=== PATIENT | male | born 1980 | race Hispanic/Latino ===

== ENCOUNTER 2020-07-11 14:39 | Emergency (ER) | payer MEDICARE ==
[2020-07-11] MEDS ORDERED: METHYLPREDNISOLONE SOD SUCC 125MG/2ML VIAL ONE (15:01)
[2020-07-11] MEDS ORDERED: IPRATROPIUM/ALBUTEROL SULFATE 3 ML SOLUTION IH ONE (15:09)
== END 2020-07-11 16:24 | disposition home or self-care (01) ==
LOC: EDH 14:39
DX: J45.31 Mild persistent asthma with (acute) exacerbation (principal); Z20.828 Contact with and (suspected) exposure to other viral communicable diseases; Z72.0 Tobacco use
CPT/HCPCS: 71045; 87426; 94640; 96374; 99284; J2930; U0003

== ENCOUNTER 2020-07-23 14:25 | Emergency (ER) | payer MEDICARE, OTHER ==
[2020-07-23] MEDS ORDERED: KETOROLAC TROMETHAMINE 30MG/ML ONE (15:07)
[2020-07-23] MEDS ORDERED: METHYLPREDNISOLONE SOD SUCC 125MG/2ML VIAL ONE (15:07)
[2020-07-23] MEDS ORDERED: CYCLOBENZAPRINE HCL 10 MG TABLET ONE (15:08)
== END 2020-07-23 15:56 | disposition home or self-care (01) ==
LOC: EDH 14:25
DX: M62.838 Other muscle spasm (principal); J45.909 Unspecified asthma, uncomplicated; Z72.0 Tobacco use
CPT/HCPCS: 96372 ×2; 99284; J1885; J2930